=== PATIENT | female | born 1985 | race Caucasian/White ===

== ENCOUNTER 2016-10-14 13:36 | Emergency (ER) | payer OTHER ==
[~2016-10-14] VITALS: Ht 154.9 cm; Wt 56.7 kg
[2016-10-14] MEDS ORDERED: NORT10CA2 (13:49)
[2016-10-14] MEDS ORDERED: SUMA6INJ16 (13:49)
[2016-10-14] MEDS ORDERED: ONDANSETRON 4 MG ORAL DISINTEGRATING TAB (S0181) PO ONE (15:30)
[2016-10-14] MEDS ORDERED: ACETAMINOPHEN 325 MG TAB PO ONE (15:30)
[2016-10-14] MEDS ORDERED: BACTRIM 160MG/800MG DS TAB PO ONE (15:45)
[2016-10-14] MEDS ORDERED: BACT800T5 PO (15:46)
[2016-10-14 16:03] VITALS: BP 106/65
== END 2016-10-14 16:18 | disposition home or self-care (01) ==
LOC: M ED 15:31
DX: N30.00 Acute cystitis without hematuria (principal); R11.0 Nausea; G43.909 Migraine, unspecified, not intractable, without status migrainosus; F17.210 Nicotine dependence, cigarettes, uncomplicated; Z79.899 Other long term (current) drug therapy

== ENCOUNTER → 2018-04-14 | Outpatient (REF) | payer OTHER | LOC: M LAB REF 15:44 | DX: J02.9 Acute pharyngitis, unspecified (principal) | CPT/HCPCS: 87070 ==

== ENCOUNTER 2018-06-04 18:15 | Emergency (ER) | payer OTHER ==
[~2018-06-04] VITALS: Ht 154.9 cm; Wt 54.5 kg
[~2018-06-04 18:15] MED LIST: BACT800T5 PO; NORT10CA2; SUMA6INJ16
[2018-06-04 20:29] LABS: HEMATOCRIT 36.2 % (36.0-47.0); HEMOGLOBIN 10.6 g/dl (12.0-15.5); MEAN CORPUSCULAR HEMOGLOBIN 21.4 pg (27.0-33.0); MEAN CORPUSCULAR HGB CONC 29.3 g/dl (32.0-36.5); PLATELET COUNT, AUTOMATED 515 10^3/uL (150-450); RED BLOOD COUNT 4.96 10^6/uL (4.00-5.40); WHITE BLOOD COUNT 8.7 10^3/uL (4.0-10.0)
[2018-06-04 20:43] LABS: ALBUMIN 4.1 GM/DL (3.2-5.2); ALT/SGPT 18 U/L (12-78); BILIRUBIN,DIRECT < 0.1 MG/DL (0.0-0.2); BILIRUBIN,TOTAL 0.2 MG/DL (0.2-1.0); BLOOD UREA NITROGEN 13 MG/DL (7-18); CALCIUM LEVEL 9.4 MG/DL (8.5-10.1); CARBON DIOXIDE LEVEL 26 MEQ/L (21-32); CHLORIDE LEVEL 108 MEQ/L (98-107); CREATININE FOR GFR 0.64 MG/DL (0.55-1.30); GLOMERULAR FILTRATION RATE > 60.0 (>60); GLUCOSE, FASTING 83 MG/DL (70-100); POTASSIUM SERUM 5.3 MEQ/L (3.5-5.1); SODIUM LEVEL 138 MEQ/L (136-145); TOTAL PROTEIN 7.4 GM/DL (6.4-8.2)
[2018-06-04 20:45] LABS: MONO REFLEX EBV COMP NEGATIVE (NEGATIVE)
[2018-06-04 21:15] VITALS: BP 113/59
[2018-06-06 14:13] LABS: EBV VIRAL CAPSID AG IgG >600.0 U/mL (0.0-17.9); EBV VIRAL CAPSID AG IgM <36.0 U/mL (0.0-35.9)
== END 2018-06-04 21:29 | disposition home or self-care (01) ==
LOC: M ED 18:15
DX: R13.10 Dysphagia, unspecified (principal); Z72.0 Tobacco use; Z88.1 Allergy status to other antibiotic agents

== ENCOUNTER → 2018-08-19 | Outpatient (CLI) | payer OTHER ==
[~2018-08-19] MED LIST changes: +E-Z-GAS II EFFERVESCENT PACKET (SODIUM BICARB./CITRIC ACID/SIMETHICONE) As Ordered ONE; +E-Z-HD 98% w/w 340GM SUSP BTL As Ordered ONE; +E-Z-PAQUE 96% w/w SUSP 176GM BTL As Ordered ONE
--- NOTE | 2018-08-19 10:05 | REP ---
Esophagram: The procedure was performed under the personal supervision of Dr. Payton. The images were reviewed with Dr. Payton. A single PA chest x-ray is submitted as a construction superintendent film. The superior mediastinal structures are midline. The heart size is within normal limits. The lungs are clear. Liquid barium and gas producing granules were given in the erect position as well as liquid barium in the prone oblique positions in order to perform a double contrast esophagram examination. During the oral and pharyngeal stages of deglutition a small amount of penetration is noted without aspiration. 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 Esophageal transport is prominent with an anterior web noted at the level of C6 on the lateral swallowing series. No esophagitis or hiatal hernia was noted. There is gastroesophageal reflux demonstrated to the level of the susanna. Impression: 1) A small amount of penetration without aspiration. 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 3) Gastroesophageal reflux to the level of the susanna. 4). 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 Reviewed by KENDELL Prsecott 08/19/2018 09:50 A Electronically Signed by Kofi Payton MD 08/19/2018 09:56 A
== END ==
LOC: M RAD 07:33
PROVIDERS: ATTEND Otolaryngology
DX: K21.9 Gastro-esophageal reflux disease without esophagitis (principal); Q39.4 Esophageal web

== ENCOUNTER 2018-10-15 22:13 | Emergency (ER) | payer OTHER ==
[~2018-10-15] VITALS: Ht 154.9 cm; Wt 52.7 kg
[~2018-10-15 22:13] MED LIST changes: -E-Z-GAS II EFFERVESCENT PACKET (SODIUM BICARB./CITRIC ACID/SIMETHICONE) As Ordered ONE; -E-Z-HD 98% w/w 340GM SUSP BTL As Ordered ONE; -E-Z-PAQUE 96% w/w SUSP 176GM BTL As Ordered ONE
[2018-10-15] MEDS ORDERED: NS 1,000 ML IV ONE (23:00)
[2018-10-15 23:20] LABS: BASO # 0.1 10^3/uL (0.0-0.2); BASO % 0.3 % (0.0-1.0); EOS % 0.1 % (0.0-3.0); HEMATOCRIT 30.4 % (36.0-47.0); HEMOGLOBIN 8.9 g/dl (12.0-15.5); LYMPH # 1.5 10^3/uL (1.5-4.5); LYMPH % 8.4 % (24.0-44.0); MEAN CORPUSCULAR HGB CONC 29.3 g/dl (32.0-36.5); MEAN CORPUSCULAR VOLUME 71.9 fl (80.0-96.0); MONO # 1.1 10^3/uL (0.0-0.8); MONO % 6.3 % (0.0-5.0); NEUTROPHILS # 15.1 10^3/uL (1.8-7.7); NEUTROPHILS % 84.4 % (36.0-66.0); PLATELET COUNT, AUTOMATED 320 10^3/uL (150-450); RED BLOOD COUNT 4.23 10^6/uL (4.00-5.40); WHITE BLOOD COUNT 17.9 10^3/uL (4.0-10.0)
[2018-10-15 23:25] LABS: INFLUENZA A AMPLIFICATION NEGATIVE (NEGATIVE); INFLUENZA B AMPLIFICATION NEGATIVE (NEGATIVE)
[2018-10-15 23:44] LABS: BLOOD UREA NITROGEN 13 MG/DL (7-18); CALCIUM LEVEL 8.5 MG/DL (8.5-10.1); CARBON DIOXIDE LEVEL 24 MEQ/L (21-32); CHLORIDE LEVEL 106 MEQ/L (98-107); CREATININE FOR GFR 0.54 MG/DL (0.55-1.30); GLOMERULAR FILTRATION RATE > 60.0 (>60); GLUCOSE, FASTING 86 MG/DL (70-100); POTASSIUM SERUM 3.4 MEQ/L (3.5-5.1); SODIUM LEVEL 139 MEQ/L (136-145)
[2018-10-16] MEDS ORDERED: OMEPRAZOLE 20 MG CAP PO ONE (00:30)
[2018-10-16] MEDS ORDERED: ACETAMINOPHEN TAB 650MG DOSE (2X325MG) PO ONE (00:30)
[2018-10-16] MEDS ORDERED: CIPR-249 PO (01:13)
[2018-10-16 01:24] VITALS: BP 99/54
[2018-10-16] MEDS ORDERED: CIPROFLOXACIN 500 MG TAB PO ONE (01:30)
== END 2018-10-16 01:27 | disposition home or self-care (01) ==
LOC: M ED 22:13
DX: D50.9 Iron deficiency anemia, unspecified (principal); N39.0 Urinary tract infection, site not specified; B34.9 Viral infection, unspecified; K21.9 Gastro-esophageal reflux disease without esophagitis; G91.9 Hydrocephalus, unspecified; R51 Headache; Z79.899 Other long term (current) drug therapy; Z88.1 Allergy status to other antibiotic agents; F17.210 Nicotine dependence, cigarettes, uncomplicated

== ENCOUNTER → 2018-12-07 | Outpatient (REF) | payer OTHER ==
[~2018-12-07] MED LIST changes: +CIPR-249 PO
== END ==
LOC: M LAB REF 15:29
PROVIDERS: ATTEND Otolaryngology
DX: R13.19 Other dysphagia (principal)

== ENCOUNTER 2019-02-02 07:19 | Day surgery (SDC) | payer OTHER ==
[~2019-02-02] VITALS: Ht 154.9 cm; Wt 54.0 kg
[~2019-02-02 07:19] MED LIST changes: +KS I200C PO; +LIDOCAINE 2% INJ 100 MG/5 ML SDV (FOR ANES.) As Ordered ONE; +MIDAZOLAM INJ 2 MG/2 ML VIAL (J2250) As Ordered ONE; +OMEP40CA2 PO; +PROPOFOL 200 MG/20 ML VIAL As Ordered ONE; +ROCURONIUM BROMIDE 50 MG/5 ML VIAL As Ordered ONE; +SUMA25TA3 PO; +fentaNYL 100 MCG/2 ML INJECTION (J3010) As Ordered ONE
[2019-02-02] MEDS ORDERED: LR 1,000 ML IV ONE (08:00)
[2019-02-02 08:35] LABS: URINE PREG TEST NEGATIVE (NEGATIVE)
[2019-02-02] MEDS ORDERED: ONDANSETRON 4MG/2ML VIAL (J2405) As Ordered ONE (09:28)
[2019-02-02] MEDS ORDERED: KETOROLAC 60 MG/2 ML VIAL (J1885) As Ordered ONE (09:28)
[2019-02-02] MEDS ORDERED: dexameTHASONE 4 MG/ML 1ML VIAL (J1100) As Ordered ONE (09:28)
[2019-02-02] MEDS ORDERED: SUGAMMADEX SODIUM 500 MG/5 ML VIAL (BRIDION) As Ordered ONE (09:32)
[2019-02-02] MEDS ORDERED: LACRILUBE (AKWA TEARS) OPHTH OINT 3.5 GM As Ordered ONE (09:38)
[2019-02-02] MEDS ORDERED: ONDANSETRON 4MG/2ML VIAL (J2405) IV PRN (10:15)
[2019-02-02] MEDS ORDERED: LR 1,000 ML IV SCH ×2 (10:15)
[2019-02-02 13:00] VITALS: BP 105/61
--- NOTE | 2019-02-02 17:25 | RO ---
DATE OF PROCEDURE: 02/02/2019 PREPROCEDURE DIAGNOSIS: Esophageal web. POSTPROCEDURE DIAGNOSIS: Esophageal web. OPERATIVE PROCEDURE: Esophageal dilatation. SURGEON: John Mensah MD MOLDER CLOSED MOLDS: ANESTHESIA: General. DESCRIPTION OF PROCEDURE: Under general anesthesia with the patient intubated, the patient prepped and draped in the usual sterile manner. I inserted a laryngoscope. I had a dental guard in place, Aquaplast. I then used the esophageal bougies to dilate starting first with a #28 up to a #42. Patient tolerated the procedure well. No bleeding. Everything looked good at the end of the operation. Patient transferred to the recovery room in excellent condition.
== END 2019-02-02 13:35 | disposition home or self-care (01) ==
LOC: M SDC 07:19
PROVIDERS: ATTEND Otolaryngology
DX: Q39.4 Esophageal web (principal); K21.9 Gastro-esophageal reflux disease without esophagitis; G43.909 Migraine, unspecified, not intractable, without status migrainosus; J45.909 Unspecified asthma, uncomplicated; Z79.899 Other long term (current) drug therapy; F17.210 Nicotine dependence, cigarettes, uncomplicated
CPT/HCPCS: 43245; 84703; J1100; J1885; J2250; J2405; J3010

== ENCOUNTER → 2019-06-23 | Outpatient (CLI) | payer OTHER ==
[~2019-06-23] MED LIST changes: -LIDOCAINE 2% INJ 100 MG/5 ML SDV (FOR ANES.) As Ordered ONE; -MIDAZOLAM INJ 2 MG/2 ML VIAL (J2250) As Ordered ONE; -OMEP40CA2 PO; +OMEP40CA97 PO; -PROPOFOL 200 MG/20 ML VIAL As Ordered ONE; -ROCURONIUM BROMIDE 50 MG/5 ML VIAL As Ordered ONE; -fentaNYL 100 MCG/2 ML INJECTION (J3010) As Ordered ONE
--- NOTE | 2019-06-23 17:20 | REP ---
MRI cervical spine without contrast: History: Degenerative disc disease. Neck pain left shoulder and arm and finger discomfort. Rule out disc herniation or stenosis. No comparison cervical spine imaging. Technique: Sagittal and axial T1 and T2-weighted scans are acquired in the usual fashion with and without fat saturation. Sequences include spin echo, turbo spin-echo, and STIR imaging sequences. MRI findings: There is straightening of the normal cervical lordosis. 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 The cervical cord is normal in coarse, caliber and signal intensity on T1 and T2-weighted scans. Craniocervical junction is unremarkable. Axial and sagittal images taken at the C2-3 level show no significant finding. At C3-4, there is mild diffuse disc bulging indenting the ventral margin of the thecal sac. Neural foramen are adequate. No central canal stenosis is seen. C4-5 level is fused no disc protrusion. The C5-6 disc level demonstrates diffuse disc bulging and posterior osteophytic ridging. There is mild uncovertebral spurring on the left. No cord compression is seen. At C6-7, there is diffuse disc bulging and posterior osteophytic ridging. There is left-sided uncovertebral spurring at C6-7 producing neural foraminal narrowing. There is a left posterior disc protrusion at this level which extends somewhat caudally. This contributes to the left neural foraminal narrowing. The C7-T1 level is unremarkable. The visualized upper thoracic levels are unremarkable. 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 There is degenerative disc disease at C3-4, C5-6, and C6-7. There is left-sided neural foraminal narrowing due to uncovertebral spurring and disc protrusion at C6-7. Diffuse disc bulging is seen at C5-6 and to a lesser extent at C3-4. Electronically Signed by Kofi Payton MD 06/23/2019 07:07 P
== END ==
LOC: M RAD 10:58
PROVIDERS: ATTEND Physician Assistant
DX: M25.78 Osteophyte, vertebrae (principal); M48.02 Spinal stenosis, cervical region; M50.21 Other cervical disc displacement, high cervical region; M50.222 Other cervical disc displacement at C5-C6 level; M50.31 Other cervical disc degeneration, high cervical region; M50.321 Other cervical disc degeneration at C4-C5 level; M50.322 Other cervical disc degeneration at C5-C6 level; M50.323 Other cervical disc degeneration at C6-C7 level

== ENCOUNTER 2019-08-02 12:50 | Day surgery (SDC) | payer OTHER ==
[~2019-08-02] VITALS: Ht 154.9 cm; Wt 56.2 kg
[~2019-08-02 12:50] MED LIST changes: +GABA-843 PO; +LIDOCAINE 2% INJ 100 MG/5 ML SDV (FOR ANES.) As Ordered ONE; +NS 1,000 ML IV ONE; -SUMA6INJ16; +SUMA6INJ16 IM; +propofoL 200 MG/20 ML VIAL As Ordered ONE
[2019-08-02] MEDS ORDERED: fentaNYL 100 MCG/2 ML INJECTION (J3010) As Ordered ONE (13:12)
[2019-08-02 14:30] VITALS: BP 115/69
--- NOTE | 2019-08-02 14:54 | ROOR ---
Patient Name: Yaya Rahman Procedure Date: 08/02/2019 1:40 PM Date of : 1985 Age: 33 Room: [facility] Gender: Female Note Status: Finalized Procedure: Upper GI endoscopy Indications: Dysphagia Providers: Carlos Elaine MD Referring MD: Rd Staton Requesting Provider: Medicines: Monitored Anesthesia Care Complications: No immediate complications. Procedure: Pre-Anesthesia Assessment: - Prior to the procedure, a History and Physical was performed, and patient medications and allergies were reviewed. The patient is competent. The risks and benefits of the procedure and the sedation options and risks were discussed with the patient. All questions were answered and informed consent was obtained. Patient identification and proposed procedure were verified by the physician, the nurse and the anesthesiologist in the procedure room. Mental Status Examination: alert and oriented. Airway Examination: normal oropharyngeal airway and neck mobility. Respiratory Examination: clear to auscultation. CV Examination: normal. Prophylactic Antibiotics: The patient does not require prophylactic antibiotics. Prior Anticoagulants: The patient has taken no previous anticoagulant or antiplatelet agents. ASA Grade Assessment: II - A patient with mild systemic disease. After reviewing the risks and benefits, the patient was deemed in satisfactory condition to undergo the procedure. The anesthesia plan was to use monitored anesthesia care (MAC). Immediately prior to administration of medications, the patient was re-assessed for adequacy to receive sedatives. The heart rate, respiratory rate, oxygen saturations, blood pressure, adequacy of pulmonary ventilation, and response to care were monitored throughout the procedure. The physical status of the patient was re-assessed after the procedure. The Endoscope was introduced through the mouth, and advanced to the second part of duodenum. The upper GI endoscopy was accomplished without difficulty. The patient tolerated the procedure well. Findings: The examined esophagus was normal. Biopsies were obtained from the proximal and distal esophagus with cold forceps for histology of suspected eosinophilic esophagitis. Verification of patient identification for the specimen was done by the physician and nurse using the patient's name, date and medical record number. Estimated blood loss was minimal. Scattered mild inflammation characterized by erythema and granularity was found in the gastric antrum. Biopsies were taken with a cold forceps for Helicobacter pylori testing. The duodenal bulb and second portion of the duodenum were normal. Impression: - Normal esophagus. Biopsied. - Gastritis. Biopsied. - Normal duodenal bulb and second portion of the duodenum. Recommendation: - Patient has a contact number available for emergencies. The signs and symptoms of potential delayed complications were discussed with the patient. Return to normal activities tomorrow. Written discharge instructions were provided to the patient. - Resume previous diet. - Avoid the food allergens. Follow Six Food Elimination Diet ( Avoid -- milk, soy, eggs, wheat, peanuts/tree nuts, and seafood), until allergy testing is done. - Continue present medications. - Await pathology results. - Telephone GI clinic for pathology results in 2 weeks. - Perform routine esophageal manometry if symptoms persist. - Return to GI clinic if persistent symptoms or new symptoms. - Return to primary care physician. Carlos Elaine MD Carlos Elaine MD 08/02/2019 2:53:50 PM Electronically signed by aCrlos Elaine MD Number of Addenda: 0 Note Initiated On: 08/02/2019 1:40 PM Estimated Blood Loss: Estimated blood loss was minimal.
== END 2019-08-02 15:07 | disposition home or self-care (01) ==
LOC: M OPP 12:50
PROVIDERS: ATTEND Internal Medicine Gastroenterology
DX: K29.70 Gastritis, unspecified, without bleeding (principal); R13.10 Dysphagia, unspecified; K21.9 Gastro-esophageal reflux disease without esophagitis; F17.210 Nicotine dependence, cigarettes, uncomplicated; Z79.899 Other long term (current) drug therapy; Z88.1 Allergy status to other antibiotic agents; Z80.0 Family history of malignant neoplasm of digestive organs; Z80.3 Family history of malignant neoplasm of breast
CPT/HCPCS: 43239; 88305; J3010

== ENCOUNTER → 2020-01-20 | Outpatient (CLI) | payer OTHER ==
[~2020-01-20] MED LIST changes: +IBUP200C88 PO; -KS I200C PO; -LIDOCAINE 2% INJ 100 MG/5 ML SDV (FOR ANES.) As Ordered ONE; -NS 1,000 ML IV ONE; -propofoL 200 MG/20 ML VIAL As Ordered ONE
== END ==
LOC: M LABSMTC 11:48
PROVIDERS: ATTEND Anesthesiology
DX: Z01.812 Encounter for preprocedural laboratory examination (principal); Z20.828 Contact with and (suspected) exposure to other viral communicable diseases

== ENCOUNTER 2020-01-25 11:04 | Day surgery (SDC) | payer OTHER ==
[~2020-01-25] VITALS: Ht 154.9 cm; Wt 53.5 kg
[~2020-01-25 11:04] MED LIST changes: +LIDOCAINE 2% 100MG/5ML SDV (FOR ANES.) As Ordered ONE; +propofoL 200 MG/20 ML VIAL As Ordered ONE
[2020-01-25] MEDS ORDERED: NS 1,000 ML IV ONE (12:15)
[2020-01-25 13:15] VITALS: BP 106/72
--- NOTE | 2020-02-09 11:36 | ROOR ---
Patient Name: Yaya Rahman Procedure Date: 01/25/2020 10:05 AM Date of : 1985 Age: 34 Room: [facility] Gender: Female Note Status: Finalized Procedure: Upper GI endoscopy Indications: Dysphagia Providers: Carlos Elaine MD Referring MD: Rd Staton, John Mensah Md Requesting Provider: Medicines: Monitored Anesthesia Care Complications: No immediate complications. Procedure: Pre-Anesthesia Assessment: - Prior to the procedure, a History and Physical was performed, and patient medications and allergies were reviewed. The patient is competent. The risks and benefits of the procedure and the sedation options and risks were discussed with the patient. All questions were answered and informed consent was obtained. Patient identification and proposed procedure were verified by the physician, the nurse and the anesthesiologist in the procedure room. Mental Status Examination: alert and oriented. Airway Examination: normal oropharyngeal airway and neck mobility. Respiratory Examination: clear to auscultation. CV Examination: normal. Prophylactic Antibiotics: The patient does not require prophylactic antibiotics. Prior Anticoagulants: The patient has taken no previous anticoagulant or antiplatelet agents. ASA Grade Assessment: II - A patient with mild systemic disease. After reviewing the risks and benefits, the patient was deemed in satisfactory condition to undergo the procedure. The anesthesia plan was to use monitored anesthesia care (MAC). Immediately prior to administration of medications, the patient was re-assessed for adequacy to receive sedatives. The heart rate, respiratory rate, oxygen saturations, blood pressure, adequacy of pulmonary ventilation, and response to care were monitored throughout the procedure. The physical status of the patient was re-assessed after the procedure. The Endoscope was introduced through the mouth, and advanced to the second part of duodenum. The upper GI endoscopy was accomplished without difficulty. The patient tolerated the procedure well. Findings: Mucosal changes including ringed esophagus and punctate white spots were found in the middle third of the esophagus and in the lower third of the esophagus. Biopsies were obtained from the proximal and distal esophagus with cold forceps for histology of suspected eosinophilic esophagitis. Verification of patient identification for the specimen was done by the physician and nurse using the patient's name, date and medical record number. Estimated blood loss was minimal. A TTS dilator was passed through the scope. Dilation with an 18-19-20 mm balloon dilator was performed to 20 mm at lower esophageal sphincter and upto 18 mm at upper esophageal sphincter. The dilation site was examined following endoscope reinsertion and showed mild mucosal disruption at LES site, moderate improvement in luminal narrowing, no bleeding and no perforation. No gross lesions were noted in the stomach. The duodenal bulb and second portion of the duodenum were normal. Impression: - Esophageal mucosal changes suspicious for eosinophilic esophagitis. Biopsied. Dilated. - No gross lesions in the stomach. - Normal duodenal bulb and second portion of the duodenum. Recommendation: - Patient has a contact number available for emergencies. The signs and symptoms of potential delayed complications were discussed with the patient. Return to normal activities tomorrow. Written discharge instructions were provided to the patient. - Clear liquid diet today, then advance as tolerated to Anti-acid reflux diet -- small meals, sit upright atleast 1 hour after meals, avoid fatty/ oily foods and avoid foods that cause reflux. - Continue present medications. - Follow an antireflux regimen. - Await pathology results. - Return to GI clinic in [facility] (address [address], [address], [place] [address]) in 4 -- 6 weeks. Please call GI clinic @ [phone] for apppointment date and time. - Return to primary care physician. Carlos Elaine MD Carlos Elaine MD 01/25/2020 1:02:23 PM Electronically signed by Carlos Elaine MD Number of Addenda: 0 Note Initiated On: 01/25/2020 10:05 AM Estimated Blood Loss: Estimated blood loss was minimal.
== END 2020-01-25 13:28 | disposition home or self-care (01) ==
LOC: M OPP 11:04
PROVIDERS: ATTEND Internal Medicine Gastroenterology
DX: K22.8 Other specified diseases of esophagus (principal); R13.10 Dysphagia, unspecified; K21.9 Gastro-esophageal reflux disease without esophagitis; F17.210 Nicotine dependence, cigarettes, uncomplicated; Z79.899 Other long term (current) drug therapy; Z88.1 Allergy status to other antibiotic agents; Z80.0 Family history of malignant neoplasm of digestive organs

== ENCOUNTER → 2020-06-05 | Outpatient (CLI) | payer OTHER ==
[~2020-06-05] MED LIST changes: -LIDOCAINE 2% 100MG/5ML SDV (FOR ANES.) As Ordered ONE; -propofoL 200 MG/20 ML VIAL As Ordered ONE
--- NOTE | 2020-06-05 12:47 | REP ---
INDICATION: R13.10 DYSPHAGIA. COMPARISON: None. TECHNIQUE: The procedure was performed by Amy King [facility], under the direct supervision of Dr. Joseph. The procedure was performed with Ida Mckeon from speech pathology present. 5 ml aliquots of thin, pudding, mixed fruit, soft food, hard food and pill consistency barium was administered. FINDINGS: No penetration or aspiration was visualized during the exam. The detailed report of this examination will be provided by speech pathology. IMPRESSION: No aspiration or penetration was visualized, a detailed report will be provided by speech pathology. 1.6 minutes of fluoroscopy time was utilized for this procedure. Some fluoroscopic images are performed with last image hold technology. These images require no additional radiation <Electronically signed by Amy King > 06/05/20 [id number] <Electronically signed by Maynor Joseph > 06/05/20 [id number]
== END ==
LOC: M ST 10:05
PROVIDERS: ATTEND Internal Medicine Gastroenterology
DX: R13.10 Dysphagia, unspecified (principal)

== ENCOUNTER → 2020-10-19 | Outpatient (CLI) | payer OTHER ==
[~2020-10-19] MED LIST changes: +GABA-282 PO; -GABA-843 PO; +IMIT6KIT SC; +NITR0.4S14 SL
== END ==
LOC: M LABSMTC 11:34
PROVIDERS: ATTEND Anesthesiology
DX: Z11.52 Encounter for screening for COVID-19 (principal)

== ENCOUNTER → 2020-10-29 | Outpatient (CLI) | payer OTHER | LOC: M LABSMTC 10:22 | PROVIDERS: ATTEND Anesthesiology | DX: Z01.818 Encounter for other preprocedural examination (principal); Z20.822 Contact with and (suspected) exposure to COVID-19 ==

== ENCOUNTER → 2021-09-28 | Outpatient (REF) | payer OTHER ==
[~2021-09-28] MED LIST changes: +OMEP40CA4 PO; -OMEP40CA97 PO; -SUMA6INJ16 IM; +SUMA6INJ25 IM
== END ==
LOC: M LAB REF 16:38
PROVIDERS: ATTEND Physician Assistant
DX: R50.9 Fever, unspecified (principal); R05.9 Cough, unspecified; J06.9 Acute upper respiratory infection, unspecified

== ENCOUNTER 2022-11-12 21:05 | Emergency (ER) | payer OTHER ==
[~2022-11-12] VITALS: Ht 154.9 cm; Wt 53.5 kg
[2022-11-12 21:05] VITALS: BP 131/87; TEMP 98.8; O2SAT 97
== END 2022-11-13 01:06 | disposition left against medical advice (07) ==
LOC: M ED 21:05
DX: S99.929A Unspecified injury of unspecified foot, initial encounter (principal); X58.XXXA Exposure to other specified factors, initial encounter; Y92.89 Other specified places as the place of occurrence of the external cause; Y93.89 Activity, other specified; Y99.8 Other external cause status; Z53.21 Procedure and treatment not carried out due to patient leaving prior to being seen by health care provider

== ENCOUNTER 2023-01-04 18:58 | Emergency (ER) | payer OTHER ==
[~2023-01-04] VITALS: Ht 154.9 cm; Wt 51.7 kg
[2023-01-04] MEDS ORDERED: FAMO20TA PO (19:04)
[2023-01-04] MEDS ORDERED: GLUCAGON INJ 1MG VIAL IV STA (21:19)
[2023-01-04 22:09] LABS: BASO # 0.1 10^3/uL (0.0-0.2); BASO % 0.7 % (0.0-1.0); EOS % 0.4 % (0.0-3.0); HEMATOCRIT 31.7 % (36.0-47.0); LYMPH # 2.8 10^3/uL (1.5-5.0); LYMPH % 29.4 % (24.0-44.0); MEAN CORPUSCULAR HEMOGLOBIN 18.9 pg (27.0-33.0); MEAN CORPUSCULAR HGB CONC 28.4 g/dl (32.0-36.5); MEAN CORPUSCULAR VOLUME 66.7 fl (80.0-96.0); MONO # 1.2 10^3/uL (0.0-0.8); MONO % 12.6 % (2.0-8.0); NEUTROPHILS # 5.3 10^3/uL (1.5-8.5); NEUTROPHILS % 56.6 % (36.0-66.0); PLATELET COUNT, AUTOMATED 250 10^3/uL (150-450); RED BLOOD COUNT 4.75 10^6/uL (4.00-5.40); WHITE BLOOD COUNT 9.3 10^3/uL (4.0-10.0)
[2023-01-04 22:18] LABS: CK-MB VALUE MASS < 1.0 NG/ML (<3.6)
[2023-01-04 22:19] LABS: BLOOD UREA NITROGEN 13 MG/DL (9-23); CALCIUM LEVEL 9.7 MG/DL (8.5-10.1); CARBON DIOXIDE LEVEL 22 MMOL/L (20-31); CHLORIDE LEVEL 108 MMOL/L (98-107); CPK CREATINE PHOSPHOKINASE 44 U/L (34-145); CREATININE FOR GFR 0.49 MG/DL (0.55-1.30); GLOMERULAR FILTRATION RATE > 60.0 (>60); GLUCOSE, FASTING 80 MG/DL (60-100); MB/CK RELATIVE INDEX 2.27 (< OR =4); POTASSIUM SERUM 4.1 MMOL/L (3.5-5.1); SODIUM LEVEL 140 MMOL/L (136-145)
[2023-01-05] MEDS ORDERED: HOME MED LIST COMPLETE! XX SCH (00:15)
[2023-01-05 00:24] LABS: RSV AMPLIFICATION NEGATIVE (NEGATIVE)
[2023-01-05] MEDS ORDERED: LIDOCAINE 2% 100MG/5ML SDV (FOR ANES.) As Ordered ONE (00:27)
[2023-01-05] MEDS ORDERED: SUCCINYLCHOLINE 100MG/5ML SYRINGE As Ordered ONE (00:27)
[2023-01-05] MEDS ORDERED: propofoL 200 MG/20 ML VIAL As Ordered ONE (00:27)
[2023-01-05] MEDS ORDERED: ROCURONIUM BROMIDE 50MG/5ML VIAL As Ordered ONE (00:27)
[2023-01-05] MEDS ORDERED: fentaNYL 100 MCG/2 ML INJECTION As Ordered ONE (00:28)
[2023-01-05] MEDS ORDERED: ISOVUE-370 76% 100ML VIAL As Ordered ONE (00:30)
[2023-01-05] MEDS ORDERED: MIDAZOLAM INJ 2MG/2ML VIAL As Ordered ONE (00:38)
[2023-01-05] MEDS ORDERED: PROT1TAB2 PO (01:42)
[2023-01-05 01:56] VITALS: BP 109/55; TEMP 98.5; O2SAT 99
== END 2023-01-05 01:58 | disposition home or self-care (01) ==
LOC: M ED 18:58
DX: K20.90 Esophagitis, unspecified without bleeding (principal); J45.909 Unspecified asthma, uncomplicated; K21.9 Gastro-esophageal reflux disease without esophagitis; F17.200 Nicotine dependence, unspecified, uncomplicated; Z88.1 Allergy status to other antibiotic agents; Z79.899 Other long term (current) drug therapy
CPT/HCPCS: 36415; 71045; 71260; 80048; 82550; 82553; 85025; 87631; 93005; 96374; 99284; J1610; Q9967

== ENCOUNTER 2023-03-04 12:18 | Day surgery (SDC) | payer OTHER ==
[~2023-03-04] VITALS: Ht 154.9 cm; Wt 51.3 kg
[~2023-03-04 12:18] MED LIST changes: +FAMO20TA PO; +NS 1,000 ML IV ONE; +PROT1TAB2 PO
[2023-03-04] MEDS ORDERED: LIDOCAINE 2% 100MG/5ML SDV (FOR ANES.) As Ordered ONE (12:37)
[2023-03-04] MEDS ORDERED: MIDAZOLAM INJ 2MG/2ML VIAL As Ordered ONE (12:37)
[2023-03-04] MEDS ORDERED: fentaNYL 100 MCG/2 ML INJECTION As Ordered ONE (12:37)
[2023-03-04] MEDS ORDERED: propofoL 200 MG/20 ML VIAL As Ordered ONE (12:37)
[2023-03-04] MEDS ORDERED: LR 1,000 ML IV SCH (12:45)
[2023-03-04] MEDS ORDERED: ISOVUE-300 61% 100ML VIAL As Ordered ONE (13:52)
[2023-03-04 15:00] VITALS: BP 108/62; TEMP 97.4; O2SAT 97
== END 2023-03-04 15:09 | disposition home or self-care (01) ==
LOC: M OPP 12:18
PROVIDERS: ATTEND Internal Medicine Gastroenterology
DX: K22.2 Esophageal obstruction (principal); R13.10 Dysphagia, unspecified; F17.200 Nicotine dependence, unspecified, uncomplicated; Z79.82 Long term (current) use of aspirin; Z79.818 Long term (current) use of other agents affecting estrogen receptors and estrogen levels; Z79.899 Other long term (current) drug therapy; Z88.1 Allergy status to other antibiotic agents
CPT/HCPCS: 43239; 81025; 88305; J2250; J3010

== ENCOUNTER 2023-05-05 12:45 | Day surgery (SDC) | payer OTHER ==
[~2023-05-05] VITALS: Ht 152.4 cm; Wt 53.5 kg
[~2023-05-05 12:45] MED LIST changes: +fentaNYL 100 MCG/2 ML INJECTION As Ordered ONE
[2023-05-05] MEDS ORDERED: LIDOCAINE 2% 100MG/5ML SDV (FOR ANES.) As Ordered ONE (12:46)
[2023-05-05] MEDS ORDERED: propofoL 200 MG/20 ML VIAL As Ordered ONE ×2 (12:46→13:42)
[2023-05-05 13:56] VITALS: BP 92/55; TEMP 98.4; O2SAT 95
== END 2023-05-05 15:45 | disposition home or self-care (01) ==
LOC: M OPP 12:45
PROVIDERS: ATTEND Internal Medicine Gastroenterology
DX: K22.2 Esophageal obstruction (principal); K29.70 Gastritis, unspecified, without bleeding; K21.9 Gastro-esophageal reflux disease without esophagitis; Z79.899 Other long term (current) drug therapy; Z88.1 Allergy status to other antibiotic agents; F17.210 Nicotine dependence, cigarettes, uncomplicated; G43.909 Migraine, unspecified, not intractable, without status migrainosus
CPT/HCPCS: 43249; J3010

== ENCOUNTER 2023-05-28 21:05 | Emergency (ER) | payer OTHER ==
[~2023-05-28 21:05] MED LIST changes: -NS 1,000 ML IV ONE; -fentaNYL 100 MCG/2 ML INJECTION As Ordered ONE
[2023-05-28 22:20] VITALS: BP 126/61; TEMP 98.1; O2SAT 93
[2023-05-28 22:21] LABS: BASO # 0.1 10^3/uL (0.0-0.2); BASO % 0.5 % (0.0-1.0); EOS # 0.1 10^3/uL (0.0-0.5); EOS % 0.6 % (0.0-3.0); HEMATOCRIT 30.7 % (36.0-47.0); HEMOGLOBIN 8.6 g/dl (12.0-15.5); LYMPH % 9.8 % (24.0-44.0); MEAN CORPUSCULAR HEMOGLOBIN 18.4 pg (27.0-33.0); MEAN CORPUSCULAR VOLUME 65.7 fl (80.0-96.0); MONO # 0.3 10^3/uL (0.0-0.8); MONO % 2.7 % (2.0-8.0); NEUTROPHILS # 9.1 10^3/uL (1.5-8.5); NEUTROPHILS % 86.1 % (36.0-66.0); PLATELET COUNT, AUTOMATED 320 10^3/uL (150-450); RED BLOOD COUNT 4.67 10^6/uL (4.00-5.40); WHITE BLOOD COUNT 10.5 10^3/uL (4.0-10.0)
[2023-05-28 22:47] LABS: ALBUMIN 3.8 G/DL (3.2-5.2); ALKALINE PHOSPHATASE 91 U/L (46-116); ALT/SGPT < 9 U/L (7.0-40); AST/SGOT 11 U/L (<34); BILIRUBIN,DIRECT < 0.1 MG/DL (<0.4); BILIRUBIN,TOTAL 0.2 MG/DL (0.3-1.2); BLOOD UREA NITROGEN 11 MG/DL (9-23); CALCIUM LEVEL 9.4 MG/DL (8.5-10.1); CARBON DIOXIDE LEVEL 20 MMOL/L (20-31); CHLORIDE LEVEL 113 MMOL/L (98-107); CREATININE FOR GFR 0.36 MG/DL (0.55-1.30); GLOMERULAR FILTRATION RATE > 60.0 (>60); GLUCOSE, FASTING 95 MG/DL (60-100); POTASSIUM SERUM 4.2 MMOL/L (3.5-5.1); SODIUM LEVEL 140 MMOL/L (136-145); TOTAL PROTEIN 6.5 G/DL (5.7-8.2)
[2023-05-28] MEDS ORDERED: IPRATROPIUM 0.5MG/ALBUTEROL 2.5MG INH SOL UD 3ML (DUONEB) NEB ONE (22:50)
[2023-05-28] MEDS ORDERED: PRED20TA PO (23:29)
[2023-05-28] MEDS ORDERED: AERO1MIS2 XX (23:29)
[2023-05-28] MEDS ORDERED: COMBAER6 INH (23:29)
[2023-05-28] MEDS ORDERED: AZIT-12 PO (23:29)
[2023-05-28] MEDS ORDERED: COMBIVENT RESPIMAT 100-20MCG INHALER 4GM INH ONE ×2 (23:30)
[2023-05-28] MEDS ORDERED: AZITHROMYCIN 250MG TABLET PO ONE (23:35)
[2023-05-29] MEDS ORDERED: AERO1MIS2 XX (12:55)
== END 2023-05-28 23:53 | disposition home or self-care (01) ==
LOC: M ED 21:05 → EDBD 21:05 → M ED 23:53
DX: R07.89 Other chest pain (principal); J45.901 Unspecified asthma with (acute) exacerbation; B34.8 Other viral infections of unspecified site; K21.9 Gastro-esophageal reflux disease without esophagitis; F17.200 Nicotine dependence, unspecified, uncomplicated; Z88.1 Allergy status to other antibiotic agents

== ENCOUNTER → 2023-06-05 | Outpatient (CLI) | payer OTHER ==
[~2023-06-05] MED LIST changes: +AERO1MIS2 XX; +AZIT-12 PO; +COMBAER6 INH; +PRED20TA PO
[2023-06-05 14:25] LABS: BASO # 0.1 10^3/uL (0.0-0.2); BASO % 1.3 % (0.0-1.0); EOS # 0.2 10^3/uL (0.0-0.5); EOS % 2.4 % (0.0-3.0); HEMATOCRIT 31.6 % (36.0-47.0); HEMOGLOBIN 8.7 g/dl (12.0-15.5); LYMPH # 2.8 10^3/uL (1.5-5.0); LYMPH % 39.2 % (24.0-44.0); MEAN CORPUSCULAR HEMOGLOBIN 18.2 pg (27.0-33.0); MEAN CORPUSCULAR HGB CONC 27.5 g/dl (32.0-36.5); MEAN CORPUSCULAR VOLUME 66.1 fl (80.0-96.0); MONO # 0.7 10^3/uL (0.0-0.8); MONO % 9.1 % (2.0-8.0); NEUTROPHILS # 3.4 10^3/uL (1.5-8.5); NEUTROPHILS % 47.7 % (36.0-66.0); PLATELET COUNT, AUTOMATED 439 10^3/uL (150-450); RED BLOOD COUNT 4.78 10^6/uL (4.00-5.40); WHITE BLOOD COUNT 7.2 10^3/uL (4.0-10.0)
[2023-06-05 14:42] LABS: BLOOD UREA NITROGEN 16 MG/DL (9-23); CREATININE FOR GFR 0.54 MG/DL (0.55-1.30); GLOMERULAR FILTRATION RATE > 60.0 (>60); IRON (FE) 11 UG/DL (50-170); PERCENT SATURATION 2.6 % (13.2-45.0); TOTAL IRON BINDING CAPACITY 420 UG/DL (250-425)
[2023-06-05 14:44] LABS: FERRITIN 1.6 NG/ML (7.3-270.7)
== END ==
LOC: M PLALAB 11:40
PROVIDERS: ATTEND Internal Medicine Gastroenterology
DX: R13.10 Dysphagia, unspecified (principal)

== ENCOUNTER 2023-07-06 23:04 | Emergency (ER) | payer OTHER ==
[~2023-07-06] VITALS: Ht 154.9 cm; Wt 52.9 kg
[2023-07-07] MEDS: NS 1,000 ML IV ONE (01:24)
[2023-07-07] MEDS: diphenhydrAMINE 50MG/ML VIAL IV ONE (01:24)
[2023-07-07] MEDS: METOCLOPRAMIDE INJ 10MG/2ML VIAL IV ONE (01:24)
[2023-07-07] MEDS: SUMAtriptan SUCCINATE 6MG/0.5ML VIAL SC ONE (01:25)
[2023-07-07] MEDS ORDERED: SUMA25TA3 PO (01:27)
[2023-07-07 02:44] VITALS: BP 136/86; TEMP 98.8; O2SAT 98
== END 2023-07-07 02:46 | disposition home or self-care (01) ==
LOC: M ED 23:04
DX: G43.909 Migraine, unspecified, not intractable, without status migrainosus (principal); F17.200 Nicotine dependence, unspecified, uncomplicated; Z79.899 Other long term (current) drug therapy; Z88.1 Allergy status to other antibiotic agents
CPT/HCPCS: 96361; 96372; 96374; 96375; 99284; J1200; J2765; J3030

== ENCOUNTER → 2023-10-24 | Outpatient (REF) | payer OTHER ==
[~2023-10-24] MED LIST changes: -SUMA6INJ25 IM; +SUMA6PEN3 IM
== END ==
LOC: M LAB REF 16:20
PROVIDERS: ATTEND Physician Assistant
DX: J02.9 Acute pharyngitis, unspecified (principal)

== ENCOUNTER 2023-12-26 20:59 | Emergency (ER) | payer OTHER ==
[~2023-12-26] VITALS: Ht 154.9 cm; Wt 49.5 kg
[2023-12-26 23:17] LABS: BASO # 0.1 10^3/uL (0.0-0.2); BASO % 0.6 % (0.0-1.0); EOS # 0.1 10^3/uL (0.0-0.5); EOS % 0.5 % (0.0-3.0); HEMATOCRIT 30.5 % (36.0-47.0); HEMOGLOBIN 8.3 g/dl (12.0-15.5); LYMPH # 1.5 10^3/uL (1.5-5.0); LYMPH % 15.5 % (24.0-44.0); MEAN CORPUSCULAR HEMOGLOBIN 17.6 pg (27.0-33.0); MEAN CORPUSCULAR HGB CONC 27.2 g/dl (32.0-36.5); MEAN CORPUSCULAR VOLUME 64.8 fl (80.0-96.0); MONO # 0.9 10^3/uL (0.0-0.8); MONO % 9.4 % (2.0-8.0); NEUTROPHILS # 7.2 10^3/uL (1.5-8.5); NEUTROPHILS % 73.8 % (36.0-66.0); PLATELET COUNT, AUTOMATED 366 10^3/uL (150-450); RED BLOOD COUNT 4.71 10^6/uL (4.00-5.40); WHITE BLOOD COUNT 9.8 10^3/uL (4.0-10.0)
[2023-12-26 23:31] LABS: CK-MB VALUE MASS < 1.0 NG/ML (<3.6)
[2023-12-26 23:34] LABS: ALBUMIN 4.2 G/DL (3.2-5.2); ALKALINE PHOSPHATASE 78 U/L (46-116); ALT/SGPT < 9 U/L (7.0-40); AST/SGOT 17 U/L (<34); BILIRUBIN,DIRECT 0.2 MG/DL (<0.4); BILIRUBIN,TOTAL 0.7 MG/DL (0.3-1.2); BLOOD UREA NITROGEN 11 MG/DL (9-23); CALCIUM LEVEL 9.7 MG/DL (8.5-10.1); CARBON DIOXIDE LEVEL 21 MMOL/L (20-31); CHLORIDE LEVEL 107 MMOL/L (98-107); CREATININE FOR GFR 0.55 MG/DL (0.55-1.30); GLOMERULAR FILTRATION RATE > 60.0 (>58); GLUCOSE, FASTING 85 MG/DL (60-100); POTASSIUM SERUM 4.6 MMOL/L (3.5-5.1); SODIUM LEVEL 135 MMOL/L (136-145)
[2023-12-26 23:43] LABS: CPK CREATINE PHOSPHOKINASE 45 U/L (34-145); MB/CK RELATIVE INDEX 2.22 (< OR =4)
[2023-12-26] MEDS: IPRATROPIUM 0.5MG/ALBUTEROL 2.5MG INH SOL UD 3ML (DUONEB) NEB PRN (23:50)
[2023-12-27 00:15] VITALS: TEMP 99.5
[2023-12-27] MEDS: methylPREDNISolone 125MG 2ML VIAL IM ONE (00:29)
[2023-12-27 01:07] LABS: RSV AMPLIFICATION NEGATIVE (NEGATIVE)
[2023-12-27] MEDS: LEVALBUTEROL 1.25MG 0.5ML CONCENTRATE NEB NEB ONE ×2 (01:27→02:45)
[2023-12-27] MEDS ORDERED: ISOVUE-370 76% 100ML VIAL As Ordered ONE (02:17)
[2023-12-27] MEDS ORDERED: VENTAER INH (03:40)
[2023-12-27] MEDS: NS 1,000 ML IV ONE (03:50)
[2023-12-27 04:00] VITALS: BP 120/62; O2SAT 98
== END 2023-12-27 04:46 | disposition home or self-care (01) ==
LOC: M ED 20:59
DX: J45.901 Unspecified asthma with (acute) exacerbation (principal); R06.02 Shortness of breath; K21.9 Gastro-esophageal reflux disease without esophagitis; F17.210 Nicotine dependence, cigarettes, uncomplicated; Z88.8 Allergy status to other drugs, medicaments and biological substances; Z79.51 Long term (current) use of inhaled steroids; Z79.2 Long term (current) use of antibiotics; Z79.52 Long term (current) use of systemic steroids; Z79.899 Other long term (current) drug therapy
CPT/HCPCS: 71046; 71275; 80048; 80076; 82550; 82553; 84484; 85025; 87486; 87581; 87631; 87633; 87798; 93005; 94640; 96372; 99284; J2919; Q9967

== ENCOUNTER 2024-09-14 00:35 | Emergency (ER) | payer OTHER ==
[~2024-09-14] VITALS: Ht 154.9 cm; Wt 47.1 kg
[~2024-09-14 00:35] MED LIST changes: +GABA-1172 PO; -GABA-282 PO; -SUMA6PEN3 IM; +SUMA6PEN5 IM; +VENTAER INH
[2024-09-14 01:43] LABS: BASO % 0.4 % (0.0-1.0); EOS # 0.1 10^3/uL (0.0-0.5); EOS % 1.2 % (0.0-3.0); HEMATOCRIT 31.1 % (36.0-47.0); HEMOGLOBIN 8.6 g/dl (12.0-15.5); LYMPH # 2.7 10^3/uL (1.5-5.0); LYMPH % 32.6 % (24.0-44.0); MEAN CORPUSCULAR HEMOGLOBIN 18.3 pg (27.0-33.0); MEAN CORPUSCULAR HGB CONC 27.7 g/dl (32.0-36.5); MONO # 0.7 10^3/uL (0.0-0.8); MONO % 8.8 % (2.0-8.0); NEUTROPHILS # 4.7 10^3/uL (1.5-8.5); NEUTROPHILS % 56.6 % (36.0-66.0); PLATELET COUNT, AUTOMATED 330 10^3/uL (150-450); RED BLOOD COUNT 4.71 10^6/uL (4.00-5.40); WHITE BLOOD COUNT 8.3 10^3/uL (4.0-10.0)
[2024-09-14 02:06] LABS: BLOOD UREA NITROGEN 14 MG/DL (9-23); CALCIUM LEVEL 9.7 MG/DL (8.5-10.1); CARBON DIOXIDE LEVEL 25 MMOL/L (20-31); CHLORIDE LEVEL 107 MMOL/L (98-107); CREATININE FOR GFR 0.55 MG/DL (0.55-1.30); GLOMERULAR FILTRATION RATE > 90.0 (>58); GLUCOSE, FASTING 110 MG/DL (60-100); HCG, SERUM QUANTITATIVE < 2.6 MIU/ML (<4.2); POTASSIUM SERUM 4.3 MMOL/L (3.5-5.1); SODIUM LEVEL 139 MMOL/L (136-145)
[2024-09-14] MEDS: MAALOX 30 ML SUSP *UDC PO ONE (11:21)
[2024-09-14] MEDS: ONDANSETRON 4MG ORAL DISINTEGRATING TAB PO ONE (11:22)
[2024-09-14 11:34] LABS: LIPASE 30 U/L (12-53)
[2024-09-14 11:36] LABS: ALBUMIN 4.4 G/DL (3.2-5.2); ALKALINE PHOSPHATASE 75 U/L (35-104); ALT/SGPT 15 U/L (7.0-40); AST/SGOT 13 U/L (<34); BILIRUBIN,DIRECT 0.1 MG/DL (<0.4); BILIRUBIN,TOTAL 0.3 MG/DL (0.3-1.2); TOTAL PROTEIN 6.8 G/DL (5.7-8.2)
[2024-09-14] MEDS ORDERED: NORE5TAB PO (12:24)
[2024-09-14 12:35] VITALS: BP 97/54; TEMP 98.7; O2SAT 96
[2024-09-14] MEDS ORDERED: PROT1TAB2 PO (14:21)
== END 2024-09-14 13:21 | disposition home or self-care (01) ==
LOC: M ED 00:35
DX: N93.9 Abnormal uterine and vaginal bleeding, unspecified (principal); K21.9 Gastro-esophageal reflux disease without esophagitis; F17.210 Nicotine dependence, cigarettes, uncomplicated; F12.10 Cannabis abuse, uncomplicated; Z88.1 Allergy status to other antibiotic agents; Z79.51 Long term (current) use of inhaled steroids; Z79.2 Long term (current) use of antibiotics; Z79.52 Long term (current) use of systemic steroids; Z79.899 Other long term (current) drug therapy

== ENCOUNTER → 2024-10-06 | Outpatient (REF) | payer MEDICAID, MEDICARE, OTHER ==
[~2024-10-06] MED LIST changes: +NORE5TAB PO
== END ==
LOC: M SFHCLERA 11:35
PROVIDERS: ATTEND Internal Medicine
DX: Z53.21 Procedure and treatment not carried out due to patient leaving prior to being seen by health care provider (principal); R61 Generalized hyperhidrosis

== ENCOUNTER → 2024-10-06 | Outpatient (CLI) | payer MEDICAID, MEDICARE, OTHER ==
[2024-10-06 15:55] LABS: BASO # 0.1 10^3/uL (0.0-0.2); BASO % 0.9 % (0.0-1.0); EOS # 0.1 10^3/uL (0.0-0.5); EOS % 0.8 % (0.0-3.0); HEMATOCRIT 28.8 % (36.0-47.0); LYMPH # 3.1 10^3/uL (1.5-5.0); LYMPH % 34.4 % (24.0-44.0); MEAN CORPUSCULAR HEMOGLOBIN 18.6 pg (27.0-33.0); MEAN CORPUSCULAR HGB CONC 27.8 g/dl (32.0-36.5); MEAN CORPUSCULAR VOLUME 66.8 fl (80.0-96.0); MONO # 0.8 10^3/uL (0.0-0.8); MONO % 8.7 % (2.0-8.0); NEUTROPHILS % 54.9 % (36.0-66.0); PLATELET COUNT, AUTOMATED 303 10^3/uL (150-450); RED BLOOD COUNT 4.31 10^6/uL (4.00-5.40); WHITE BLOOD COUNT 9.1 10^3/uL (4.0-10.0)
[2024-10-06 16:14] LABS: LDH LACTATE DEHYDROGENASE 125 U/L (120-246)
[2024-10-06 16:15] LABS: IRON (FE) 11 UG/DL (50-170)
[2024-10-06 16:16] LABS: PERCENT SATURATION 2.6 % (13.2-45.0); TOTAL IRON BINDING CAPACITY 425 UG/DL (250-425)
[2024-10-06 16:18] LABS: ALT/SGPT 12 U/L (7.0-40); AST/SGOT 9 U/L (<34); BILIRUBIN,TOTAL 0.4 MG/DL (0.3-1.2); BLOOD UREA NITROGEN 14 MG/DL (9-23); CALCIUM LEVEL 9.7 MG/DL (8.5-10.1); CARBON DIOXIDE LEVEL 27 MMOL/L (20-31); CHLORIDE LEVEL 110 MMOL/L (98-107); CHOLESTEROL LEVEL 159 MG/DL (<200); CHOLESTEROL RISK RATIO 3.63 (<5); CREATININE FOR GFR 0.51 MG/DL (0.55-1.30); FERRITIN < 0.9 NG/ML (7.3-270.7); GLOMERULAR FILTRATION RATE > 90.0 (>58); GLUCOSE, FASTING 79 MG/DL (60-100); HDL CHOLESTEROL 43.7 MG/DL (>40); LDL CHOLESTEROL 99.7 MG/DL (<100); NON-HDL-C 115.3 MG/DL; POTASSIUM SERUM 4.4 MMOL/L (3.5-5.1); SODIUM LEVEL 143 MMOL/L (136-145); THYROID STIMULATING HORMONE 1.462 uIU/ML (0.55-4.78); TOTAL PROTEIN 6.9 G/DL (5.7-8.2); TRIGLYCERIDES LEVEL 78 MG/DL (<150)
[2024-10-06 16:52] LABS: ALKALINE PHOSPHATASE 78 U/L (35-104)
[2024-10-09 01:38] LABS: Estimated Ave Glu(eAG) 5.5 mmol/L; Hemoglobin A1c 5.1 % (<5.7)
== END ==
LOC: M PLALAB 14:24
PROVIDERS: ATTEND Internal Medicine
DX: R61 Generalized hyperhidrosis (principal); D50.0 Iron deficiency anemia secondary to blood loss (chronic)

== ENCOUNTER → 2024-12-09 | Outpatient (CLI) | payer OTHER ==
[~2024-12-09] MED LIST changes: +AMIT50TA PO; +IRON65TA2 PO
[2024-12-09 13:06] LABS: INR 0.96
[2024-12-09 13:17] LABS: URINE PREG TEST NEGATIVE (NEGATIVE)
[2024-12-09 13:19] LABS: ALT/SGPT 18 U/L (7.0-40); AST/SGOT 15 U/L (<34); BASO # 0.1 10^3/uL (0.0-0.2); BASO % 0.8 % (0.0-1.0); CALCIUM LEVEL 9.8 MG/DL (8.5-10.1); CARBON DIOXIDE LEVEL 24 MMOL/L (20-31); CHLORIDE LEVEL 111 MMOL/L (98-107); CREATININE FOR GFR 0.64 MG/DL (0.55-1.30); EOS # 0.1 10^3/uL (0.0-0.5); EOS % 0.8 % (0.0-3.0); GLOMERULAR FILTRATION RATE > 90.0 (>58); IRON (FE) 25 UG/DL (50-170); LYMPH # 2.2 10^3/uL (1.5-5.0); LYMPH % 33.3 % (24.0-44.0); MONO # 0.5 10^3/uL (0.0-0.8); MONO % 8.3 % (2.0-8.0); NEUTROPHILS # 3.7 10^3/uL (1.5-8.5); NEUTROPHILS % 56.5 % (36.0-66.0); PERCENT SATURATION 6.5 % (13.2-45.0); PLATELET COUNT, AUTOMATED 343 10^3/uL (150-450); POTASSIUM SERUM 4.3 MMOL/L (3.5-5.1); SODIUM LEVEL 144 MMOL/L (136-145)
== END ==
LOC: M PLALAB 11:32
PROVIDERS: ATTEND Internal Medicine
DX: D50.8 Other iron deficiency anemias (principal); D50.0 Iron deficiency anemia secondary to blood loss (chronic)

== ENCOUNTER 2024-12-24 13:45 | Observation (INO) | payer OTHER ==
[~2024-12-24] VITALS: Ht 157.5 cm; Wt 49.9 kg
[~2024-12-24 13:45] MED LIST changes: +HYDROmorphone HCL 2 MG/ML 1 ML VIAL As Ordered ONE; +MIDAZOLAM INJ 2 MG/2 ML VIAL As Ordered ONE
[2024-12-24] MEDS ORDERED: ONDANSETRON 4MG 2ML VIAL As Ordered ONE (13:46)
[2024-12-24] MEDS ORDERED: SUGAMMADEX SODIUM 500 MG/5 ML VIAL As Ordered ONE (13:46)
[2024-12-24] MEDS ORDERED: dexAMETHasone 4 MG/ML 1 ML VIAL As Ordered ONE (13:46)
[2024-12-24] MEDS ORDERED: LIDOCAINE 2% 100 MG/5 ML SDV (FOR ANES.) As Ordered ONE (13:46)
[2024-12-24] MEDS ORDERED: ROCURONIUM BROMIDE 50MG/5ML VIAL As Ordered ONE (13:46)
[2024-12-24] MEDS ORDERED: KETOROLAC 30 MG/ML 1 ML VIAL As Ordered ONE (13:46)
[2024-12-24 14:16] LABS: PLATELET COUNT, AUTOMATED 375 10^3/uL (150-450)
[2024-12-24] MEDS ORDERED: ACETAMINOPHEN 1000MG/100ML IV BAG As Ordered ONE (15:04)
[2024-12-24] MEDS: ceFAZolin SOD 2 GM IV ONCE IV ONE (16:29)
[2024-12-24] MEDS: ONDANSETRON 4MG 2ML VIAL IV PRN (19:22)
[2024-12-24] MEDS: HYDROMORPHONE HCL 0.5 MG/0.5 ML SYRINGE IV PRN (19:23)
[2024-12-24] MEDS: PROMETHAZINE 25MG/ML 1ML VIAL IV PRN (19:46)
[2024-12-24 20:23] VITALS: BP 109/62; TEMP 97.5; O2SAT 97
[2024-12-24 21:04] VITALS: BP 103/58; TEMP 97.5; O2SAT 98
[2024-12-24 21:05] VITALS: BP 103/58; TEMP 97.6; O2SAT 98
[2024-12-24] MEDS: LR 1,000 ML IV SCH ×3 (21:11→21:16)
[2024-12-24 22:05] VITALS: BP 114/69; TEMP 97.2; O2SAT 100
[2024-12-24] MEDS: DOCUSATE SODIUM 100 MG CAPSULE PO SCH (22:10)
[2024-12-24] MEDS: PERCOCET 5MG/325MG TAB PO PRN (22:13)
[2024-12-24 23:00] VITALS: BP 114/69; TEMP 97; O2SAT 98
[2024-12-25 00:16] VITALS: BP 110/64; TEMP 96.8; O2SAT 97
[2024-12-25 04:54] VITALS: BP 111/63; TEMP 97.2; O2SAT 98
[2024-12-25 08:32] VITALS: BP 110/62; TEMP 97.5; O2SAT 95
[2024-12-25] MEDS ORDERED: IBUP-1022 PO (10:49)
[2024-12-25] MEDS ORDERED: OXYC1TAB23 PO (10:50)
[2024-12-25] MEDS ORDERED: COLA100C5 PO (10:51)
== END 2024-12-25 11:47 | disposition home or self-care (01) ==
LOC: M SDC 13:45 → M RR INP 13:46 → M MS5PR 21:01
PROVIDERS: ADMIT Specialist; ATTEND Specialist
DX: D25.0 Submucous leiomyoma of uterus (principal); D25.1 Intramural leiomyoma of uterus; D25.2 Subserosal leiomyoma of uterus; N85.8 Other specified noninflammatory disorders of uterus; G91.9 Hydrocephalus, unspecified; Z88.1 Allergy status to other antibiotic agents; Z79.899 Other long term (current) drug therapy; F17.210 Nicotine dependence, cigarettes, uncomplicated
CPT/HCPCS: 36415; 58572; 81025; 85027; 86850; 86900; 86901; 88307; J0131; J0665; J0690; J1100; J1171; J1885; J2250; J2405; J2550; J3010; S2900

== ENCOUNTER 2024-12-27 18:51 | Inpatient (IN) | payer OTHER ==
[~2024-12-27] VITALS: Ht 154.9 cm; Wt 50.7 kg
[~2024-12-27 18:51] MED LIST changes: +COLA100C5 PO; -HYDROmorphone HCL 2 MG/ML 1 ML VIAL As Ordered ONE; +IBUP-1022 PO; -MIDAZOLAM INJ 2 MG/2 ML VIAL As Ordered ONE; +OXYC1TAB23 PO
[2024-12-27] MEDS: IPRATROPIUM 0.5 MG/ALBUTEROL 2.5 MG INH SOL UD 3 ML NEB ONE (20:10)
[2024-12-27] MEDS: ACETAMINOPHEN 325 MG TAB PO ONE (20:17)
[2024-12-27] MEDS: BENZONATATE 100 MG CAPSULE PO ONE (21:56)
[2024-12-27] MEDS: ONDANSETRON 4MG 2ML VIAL IV ONE (21:57)
[2024-12-27] MEDS: MORPHINE 4 MG/ML 1 ML VIAL IV PRN (21:57)
[2024-12-27 22:10] LABS: BASO # 0.0 10^3/uL (0.0-0.2); BASO % 0.4 % (0.0-1.0); EOS # 0.1 10^3/uL (0.0-0.5); EOS % 0.8 % (0.0-3.0); LYMPH # 1.7 10^3/uL (1.5-5.0); LYMPH % 21.5 % (24.0-44.0); MONO # 0.7 10^3/uL (0.0-0.8); MONO % 9.2 % (2.0-8.0); NEUTROPHILS # 5.3 10^3/uL (1.5-8.5); NEUTROPHILS % 67.8 % (36.0-66.0); PLATELET COUNT, AUTOMATED 307 10^3/uL (150-450)
[2024-12-27 22:43] LABS: CALCIUM LEVEL 9.1 MG/DL (8.5-10.1); CARBON DIOXIDE LEVEL 25 MMOL/L (20-31); CHLORIDE LEVEL 104 MMOL/L (98-107); CREATININE FOR GFR 0.51 MG/DL (0.55-1.30); GLOMERULAR FILTRATION RATE > 90.0 (>58); POTASSIUM SERUM 3.9 MMOL/L (3.5-5.1); SODIUM LEVEL 140 MMOL/L (136-145)
[2024-12-27] MEDS ORDERED: ISOVUE-370 76% 100 ML VIAL As Ordered ONE (22:47)
[2024-12-27] MEDS ORDERED: ALBU8.5H INH (23:41)
[2024-12-27] MEDS ORDERED: MED REC COMMENT (23:42)
[2024-12-27] MEDS ORDERED: HOME MED LIST COMPLETE! XX SCH (23:45)
[2024-12-28] MEDS ORDERED: MAALOX 30 ML SUSP *UDC PO PRN (01:40)
[2024-12-28] MEDS ORDERED: ALBUTEROL SULFATE 2.5 MG/0.5 ML INH CONCENTRATE NEB SOLN NEB PRN (02:10)
[2024-12-28] MEDS ORDERED: NICOTINE 14 MG/24 HR TRANSDERMAL TD PRN (02:40)
[2024-12-28] MEDS ORDERED: SENNA 8.6 MG TAB PO PRN (02:55)
[2024-12-28 03:04] VITALS: BP 119/59; TEMP 97.6; O2SAT 97
[2024-12-28] MEDS: IPRATROPIUM 0.5 MG/ALBUTEROL 2.5 MG INH SOL UD 3 ML NEB SCH (04:54)
[2024-12-28] MEDS: PERCOCET 5MG/325MG TAB PO PRN (05:23)
[2024-12-28] MEDS: AZITHROMYCIN 250 MG TABLET PO SCH (06:07)
[2024-12-28 06:47] LABS: VENOUS BASE EXCESS -1.9 (-2.0-2.0); VENOUS HCO3 22.9 MMOL/L (23.0-27.0); VENOUS O2 SATURATION 99.5 % (60.0-80.0); VENOUS PARTIAL PRESSURE CO2 39.5 mmHg (38.0-50.0); VENOUS PARTIAL PRESSURE O2 215.4 mmHg (30.0-50.0); VENOUS PH 7.382 UNITS (7.330-7.430); VENOUS STANDARD HCO3 22.9 MMOL/L; VENOUS TOTAL CO2 24.2 MMOL/L (24.0-28.0)
[2024-12-28 06:53] LABS: BASO # 0.0 10^3/uL (0.0-0.2); BASO % 0.0 % (0.0-1.0); EOS # 0.0 10^3/uL (0.0-0.5); EOS % 0.0 % (0.0-3.0); LYMPH # 0.5 10^3/uL (1.5-5.0); LYMPH % 8.5 % (24.0-44.0); MONO # 0.0 10^3/uL (0.0-0.8); MONO % 0.8 % (2.0-8.0); NEUTROPHILS # 4.8 10^3/uL (1.5-8.5); NEUTROPHILS % 90.1 % (36.0-66.0); PLATELET COUNT, AUTOMATED 312 10^3/uL (150-450)
[2024-12-28 07:39] LABS: ALT/SGPT 27 U/L (7.0-40); AST/SGOT 21 U/L (<34); CALCIUM LEVEL 9.6 MG/DL (8.5-10.1); CARBON DIOXIDE LEVEL 24 MMOL/L (20-31); CHLORIDE LEVEL 103 MMOL/L (98-107); CREATININE FOR GFR 0.49 MG/DL (0.55-1.30); GLOMERULAR FILTRATION RATE > 90.0 (>58); MAGNESIUM LEVEL 1.8 MG/DL (1.8-2.4); POTASSIUM SERUM 4.0 MMOL/L (3.5-5.1); SODIUM LEVEL 138 MMOL/L (136-145)
[2024-12-28] MEDS: PANTOPRAZOLE 40MG VIAL IV SCH (08:52)
[2024-12-28] MEDS: DOCUSATE SODIUM 100 MG CAPSULE PO SCH (08:52)
[2024-12-28] MEDS: guaiFENesin ER TABLET 600 MG TAB PO SCH (08:53)
[2024-12-28] MEDS: MOM 30 ML SUSPENSION UDC PO PRN (09:29)
[2024-12-28 11:45] VITALS: BP 117/58; TEMP 98.2; O2SAT 98
[2024-12-28] MEDS: MAG SULF 1GM/100ML (MAG RUN) 1 GM in IV 1 EA IV SCH (13:11)
[2024-12-28 14:57] VITALS: O2SAT 96
[2024-12-28] MEDS: SODIUM CHLORIDE HYPERTONIC 3% 4ML NEB SOL INH SCH (15:05)
[2024-12-28] MEDS: BUDESONIDE 180 MCG INHALER INH SCH (19:47)
[2024-12-28 20:29] VITALS: BP 118/55; TEMP 97.8; O2SAT 99
[2024-12-28] MEDS: ACETAMINOPHEN 325 MG TAB PO PRN (20:36)
[2024-12-28] MEDS: AMITRIPTYLINE 50MG TAB PO SCH (20:36)
[2024-12-29 06:23] VITALS: TEMP 97.2
[2024-12-29 06:24] VITALS: BP 113/60; TEMP 97.2; O2SAT 95
[2024-12-29 06:45] LABS: BASO # 0.0 10^3/uL (0.0-0.2); BASO % 0.1 % (0.0-1.0); EOS # 0.0 10^3/uL (0.0-0.5); EOS % 0.0 % (0.0-3.0); LYMPH # 0.9 10^3/uL (1.5-5.0); LYMPH % 4.0 % (24.0-44.0); MONO # 1.1 10^3/uL (0.0-0.8); MONO % 4.9 % (2.0-8.0); NEUTROPHILS # 20.0 10^3/uL (1.5-8.5); NEUTROPHILS % 90.5 % (36.0-66.0); PLATELET COUNT, AUTOMATED 335 10^3/uL (150-450)
[2024-12-29 07:38] LABS: CALCIUM LEVEL 9.8 MG/DL (8.5-10.1); CARBON DIOXIDE LEVEL 26 MMOL/L (20-31); CHLORIDE LEVEL 105 MMOL/L (98-107); CREATININE FOR GFR 0.47 MG/DL (0.55-1.30); GLOMERULAR FILTRATION RATE > 90.0 (>58); MAGNESIUM LEVEL 2.3 MG/DL (1.8-2.4); POTASSIUM SERUM 5.2 MMOL/L (3.5-5.1); SODIUM LEVEL 139 MMOL/L (136-145)
[2024-12-29] MEDS: ENOXAPARIN 40 MG/0.4 ML SYRINGE (J1650 PER 10MG) SC SCH (08:24)
[2024-12-29] MEDS ORDERED: SYMB80INH INH (10:01)
[2024-12-29] MEDS ORDERED: PRED10TA2 PO (10:01)
== END 2024-12-29 11:15 | disposition home or self-care (01) | DRG 141 ==
LOC: M ED 18:51 → M ED INP 12-28 02:07 → M MS4PR 12-28 02:53
PROVIDERS: ADMIT Student in an Organized Health Care Education/Training Program; ATTEND Internal Medicine
DX: J45.901 Unspecified asthma with (acute) exacerbation (principal); B97.89 Other viral agents as the cause of diseases classified elsewhere; K21.9 Gastro-esophageal reflux disease without esophagitis; G43.909 Migraine, unspecified, not intractable, without status migrainosus; K59.04 Chronic idiopathic constipation; J20.8 Acute bronchitis due to other specified organisms; F17.200 Nicotine dependence, unspecified, uncomplicated; B97.10 Unspecified enterovirus as the cause of diseases classified elsewhere; R63.4 Abnormal weight loss; D72.829 Elevated white blood cell count, unspecified; Z79.899 Other long term (current) drug therapy; Z88.1 Allergy status to other antibiotic agents

== ENCOUNTER → 2025-01-03 | Outpatient (REF) | payer OTHER ==
[~2025-01-03] MED LIST changes: +ALBU8.5H INH; +MED REC COMMENT; +PRED10TA2 PO; +SYMB80INH INH
[2025-01-03 14:06] LABS: BASO # 0.0 10^3/uL (0.0-0.2); BASO % 0.2 % (0.0-1.0); EOS # 0.0 10^3/uL (0.0-0.5); EOS % 0.2 % (0.0-3.0); LYMPH # 1.8 10^3/uL (1.5-5.0); LYMPH % 14.7 % (24.0-44.0); MONO # 0.6 10^3/uL (0.0-0.8); MONO % 5.2 % (2.0-8.0); NEUTROPHILS # 9.5 10^3/uL (1.5-8.5); NEUTROPHILS % 78.5 % (36.0-66.0); PLATELET COUNT, AUTOMATED 371 10^3/uL (150-450)
[2025-01-03 14:16] LABS: ERYTHROCYTE SEDIMENTATION RATE 6 mm/hr (0-20)
[2025-01-03 14:35] LABS: LDH LACTATE DEHYDROGENASE 171 U/L (120-246)
[2025-01-03 14:37] LABS: ALT/SGPT 25 U/L (7.0-40); AST/SGOT 12 U/L (<34); C REACTIVE PROTEIN QUANTITATIV < 0.50 MG/DL (<1.0); CALCIUM LEVEL 9.8 MG/DL (8.5-10.1); CARBON DIOXIDE LEVEL 22 MMOL/L (20-31); CHLORIDE LEVEL 103 MMOL/L (98-107); CREATININE FOR GFR 0.49 MG/DL (0.55-1.30); GLOMERULAR FILTRATION RATE > 90.0 (>58); POTASSIUM SERUM 4.8 MMOL/L (3.5-5.1); SODIUM LEVEL 137 MMOL/L (136-145)
[2025-01-03 14:38] LABS: FREE T4 1.31 NG/DL (0.89-1.76)
[2025-01-03 15:12] LABS: HIV 1&2 SCREEN NEGATIVE (NEGATIVE)
[2025-01-03 15:19] LABS: HEPATITIS C VIRUS ABY INDEX < 0.02 INDEX (<0.8)
== END ==
LOC: M SFHCLERA 11:02
PROVIDERS: ATTEND Internal Medicine
DX: R61 Generalized hyperhidrosis (principal)

== ENCOUNTER → 2025-02-16 | Outpatient (CLI) | payer OTHER ==
[~2025-02-16] MED LIST changes: -IBUP-1022 PO; +IBUP600T42 PO
[2025-02-17 16:22] LABS: ANTI-U1 RNP AB <1.0 NEG AI (<1.0 NEG); SSA SJOGRENS A <1.0 NEG AI (<1.0 NEG); SSB SJOGRENS B <1.0 NEG AI (<1.0 NEG)
[2025-02-18 03:07] LABS: CARDIOLIPIN IGA ANTIBODY < 2.0 APL-U/mL (<20.0); CARDIOLIPIN IGG ANTIBODY < 2.0 GPL-U/mL (<20.0); CARDIOLIPIN IGM ANTIBODY < 2.0 MPL-U/mL (<20.0)
== END ==
LOC: M LAB 10:17
PROVIDERS: ATTEND Psychiatry & Neurology Neurology
DX: R51.9 Headache, unspecified (principal)

== ENCOUNTER → 2025-03-17 | Outpatient (REF) | payer OTHER | LOC: M SFHCLERA 10:45 | PROVIDERS: ATTEND Internal Medicine | DX: D50.0 Iron deficiency anemia secondary to blood loss (chronic) (principal) ==

== ENCOUNTER 2025-04-05 20:50 | Emergency (ER) | payer OTHER ==
[~2025-04-05] VITALS: Ht 154.9 cm; Wt 53.5 kg
[2025-04-05] MEDS: dexAMETHasone 4 MG/ML 1 ML VIAL PO ONE (21:54)
[2025-04-05] MEDS: LIDOCAINE VISCOUS 2% SOLN 15 ML UDC TOP ONE (21:54)
[2025-04-05] MEDS: PERCOCET 5MG/325MG TAB PO ONE (21:57)
[2025-04-05] MEDS ORDERED: AMOX875T2 PO (22:45)
[2025-04-05 22:54] VITALS: BP 113/63; TEMP 98; O2SAT 97
== END 2025-04-05 22:55 | disposition home or self-care (01) ==
LOC: M ED 20:50
DX: K04.7 Periapical abscess without sinus (principal); K02.7 Dental root caries; J45.909 Unspecified asthma, uncomplicated; K21.9 Gastro-esophageal reflux disease without esophagitis; F17.210 Nicotine dependence, cigarettes, uncomplicated; F12.10 Cannabis abuse, uncomplicated; Z88.1 Allergy status to other antibiotic agents; Z79.51 Long term (current) use of inhaled steroids; Z79.2 Long term (current) use of antibiotics; Z79.899 Other long term (current) drug therapy; Z79.52 Long term (current) use of systemic steroids